=== PATIENT | male | born 1995 | race Caucasian/White ===

== ENCOUNTER 2023-11-19 16:45 | Outpatient (RCR) | payer OTHER, SELFPAY | END 2024-01-31 14:26 | disposition home or self-care (01) | PROVIDERS: PCP Family Medicine; Visit Provider Orthopaedic Surgery | DX: M22.42 Chondromalacia patellae, left knee (principal); M25.562 Pain in left knee; Z51.89 Encounter for other specified aftercare | CPT/HCPCS: 97110; 97140; 97162 ==

== ENCOUNTER 2024-07-31 15:40 | Emergency (ER) | payer OTHER, SELFPAY ==
[2024-07-31 15:58] VITALS: BP 139/79; PULSE 68; RESP 24; TEMP 36.5; O2SAT 100; BMI 20.4
--- NOTE | 2024-07-31 16:20 | CRLHL7_ITS ---
For Patients: As a result of the Cures Act, medical imaging exams and procedure reports are released immediately into your electronic medical record. You may view this report before your referring provider. If you have questions, please contact your health care provider. Indication: Pain, surgery yesterday Technique: Left lower extremity venous ultrasound utilizing grayscale, color flow and duplex Doppler techniques Comparison: None Findings: Sonographic evaluation of the left lower extremity venous system from the common femoral, partially visualized greater saphenous, through the femoral, popliteal and calf veins demonstrates no echogenic debris, normal compressibility, normal color flow and normal augmented duplex Doppler waveforms. No popliteal cyst. Impression: Negative study. Dictated by Yaya Bowman MD @ 07/31/2024 5:57:58 PM (Electronically Signed)
[2024-07-31] MEDS: MORPHINE 4 MG/ML INJ 8 MG IM (16:29)
--- NOTE | 2024-07-31 17:20 | ED.GENADULT ---
HPI - General Adult General Date Seen: 07/31/24 Chief complaint: Extremity Pain/Injury, Lower Stated complaint: knee pain Time Seen by Provider: 07/31/24 16:13 Source: patient Mode of arrival: ambulatory Limitations: no limitations History of Present Illness HPI narrative: Patient is a 28-year-old male who had a surgery on his left knee yesterday, a FANTA procedure which was done at [facility] in [place]. He says he had a block in place which was supposed to last for 4 days but he has had significant pain today including pain in the thigh and calf. He was sent in to evaluate for possible blood clot. He does not have history of DVT or PE. He has not noted any swelling. He has been taking Tylenol and oxycodone but says that has not been controlling his pain and requests additional medication here. He does take gabapentin chronically, no other chronic pain medications. He uses marijuana regularly, drinks occasionally, denies either in the past couple of days. No fevers or systemic symptoms. Related Data Home Medications ?Medication ?Instructions ?Recorded ?Confirmed aspirin 81 mg tablet,delayed 81 mg PO BID 07/31/24 07/31/24 release buspirone 15 mg tablet 15 mg PO 3XD 07/31/24 07/31/24 docusate sodium 100 mg capsule 100 mg PO BID PRN 07/31/24 07/31/24 escitalopram oxalate 20 mg tablet 20 mg PO DAILY 07/31/24 07/31/24 gabapentin 300 mg capsule mg PO 07/31/24 methocarbamol 500 mg tablet mg PO 07/31/24 ondansetron HCl 4 mg tablet 4 mg PO Q8H PRN 07/31/24 07/31/24 oxycodone-acetaminophen 5 mg-325 tab PO 07/31/24 mg tablet Allergies Allergy/AdvReac Type Severity Reaction Status Date / Time strawberry Allergy Severe Hives Verified 07/31/24 15:54 Sulfa (Sulfonamide Allergy Severe Hives Verified 07/31/24 15:54 Antibiotics) Review of Systems Status of ROS: Reports: 6 or more systems reviewed and unremarkable except as noted in History and below PFSH PFSH Social History Smoking Status: Never smoker Do you use any of these nicotine containing products: None How often do you have a drink containing alcohol: 2-3 times a week AUDIT-C Alcohol total score: 3 Non-prescribed substance use: marijuana (any form) Exam Narrative: Exam Narrative: Vital signs reviewed In general, alert, well-appearing young man. Extremities: Examination of the left leg initially shows it to be entirely bandaged and in a hinged knee brace. Distal CMS is normal, there is no edema, no calf tenderness. No erythema or warmth. Const: Vital Signs, click to edit/add: Vital Signs - 24 hr 07/31/24 15:58 07/31/24 17:51 Temperature 97.7 F 98.7 F Pulse Rate [Pulse Oximeter] 68 60 Respiratory Rate 24 18 Blood Pressure [Ri ght Upper Arm] 139/79 141/99 H Pulse Oximetry 100 99 Oxygen Delivery Me thod Room Air Room Air Documenting provider has reviewed patient's vital signs: yes Course Course ED Course: Dressings were taken down for further evaluation. No significant erythema, edema, or other abnormalities. There is some swelling around the knee which is to be expected. Range of motion was not assessed as he is not supposed to flex or extend the knee outside of 30? for the time being. An ultrasound was done, preliminary read is negative for DVT. No evidence of infection. Add recommended this time that he continue with his regular pain medications, did have 8 mg of IM morphine here along with cyclobenzaprine. He should call his orthopedic clinic tomorrow to discuss if he continues to have significant pain. Vital Signs Vital signs: Initial Vital Signs Temperature 97.7 F 07/31/24 15:58 Temperature Source Temporal Artery Scan 07/31/24 15:58 Pulse Rate 68 07/31/24 15:58 Respiratory Rate 24 07/31/24 15:58 Blood Pressure 139/79 07/31/24 15:58 Blood Pressure Mean 99 07/31/24 15:58 Blood Pressure Position Sitting 07/31/24 15:58 Pulse Oximetry 100 07/31/24 15:58 Oxygen Delivery Method Room Air 07/31/24 15:58 Vital Signs Temperature 97.7 F 07/31/24 15:58 Pulse Rate 68 07/31/24 15:58 Respiratory Rate 24 07/31/24 15:58 Blood Pressure 139/79 07/31/24 15:58 Pulse Oximetry 100 07/31/24 15:58 Oxygen Delivery Method Room Air 07/31/24 15:58 Temperature 98.7 F 07/31/24 17:51 Pulse Rate 60 07/31/24 17:51 Respiratory Rate 18 07/31/24 17:51 Blood Pressure 141/99 H 07/31/24 17:51 Pulse Oximetry 99 07/31/24 17:51 Oxygen Delivery Method Room Air 07/31/24 17:51 Medications Administered Medications: Discontinued Medications Generic Name Dose Route Start Last Admin Trade Name Juan PRN Reason Stop Dose Admin Acetaminophen 1,000 mg 07/31/24 17:51 07/31/24 17:54 Acetaminophen 500 Mg Tablet PO 07/31/24 17:52 1,000 mg ONCE ONE Administration Cyclobenzaprine HCl 10 mg 07/31/24 17:22 07/31/24 17:32 Cyclobenzaprine Hcl 10 Mg Tablet PO 07/31/24 17:23 10 mg ONCE ONE Administration Morphine Sulfate 8 mg 07/31/24 16:19 07/31/24 16:29 Morphine 4 Mg/Ml Inj IM 07/31/24 16:20 8 mg ONCE ONE Administration Discharge Plan Discharge Clinical Impression: Acute post-operative pain Patient Disposition: Home, Self-Care Condition: Stable Instructions: Pain Management After Surgery (DC) Additional Instructions: I would recommend Tylenol 1000 mg 3 times daily as your baseline pain control. Use oxycodone as needed, 1-2 tablets. Continue your muscle relaxer. If pain is not settling down, please discuss further with orthopedic clinic tomorrow. Return any time for significant changes such as swelling, redness, fevers. Your ultrasound today was read as negative for blood clot and there was no evidence of infection on today's exam. Prescriptions: No Action aspirin 81 mg tablet,delayed release (DR/EC) 81 mg PO BID docusate sodium 100 mg capsule 100 mg PO BID PRN gabapentin 300 mg capsule PO buspirone 15 mg tablet 15 mg PO 3XD escitalopram oxalate 20 mg tablet 20 mg PO DAILY methocarbamol 500 mg tablet PO ondansetron HCl 4 mg tablet 4 mg PO Q8H PRN oxycodone-acetaminophen 5-325 mg tablet PO Follow Up/Referrals: Nuria Georges MD [Primary Care Provider] - Stand Alone Forms: [facility] Info Instructions
[2024-07-31] MEDS: CYCLOBENZAPRINE HCL 10 MG TABLET PO (17:32)
[2024-07-31 17:51] VITALS: BP 141/99; PULSE 60; RESP 18; TEMP 37.1; O2SAT 99
[2024-07-31] MEDS: ACETAMINOPHEN 500 MG TABLET 1000 MG PO (17:54)
== END 2024-07-31 18:00 | disposition home or self-care (01) ==
PROVIDERS: Emergency Provider Emergency Medicine; PCP Family Medicine
DX: M25.562 Pain in left knee (principal); G89.18 Other acute postprocedural pain
CPT/HCPCS: 93971; 96372; 99283; 99284; A9270; J2270

== ENCOUNTER 2024-09-11 09:15 | Outpatient (RCR) | payer OTHER, SELFPAY ==
--- OUTSIDE RECORDS SUMMARY | 2024-09-11 09:31 | XMS_ITS | Clinical Summary ---
Author Organization [facility] Address [place], [place] [address] Care Team Providers Care Cyanide Case Hardener Name Role Phone Nuria Georges MD Primary Care Provider [phone] Allergies Active Allergy Reactions Criticality Noted Date Comments [place] *Unknown 11/06/2016 Sulfa (Sulfonamide Antibiotics) *Unknown 10/12 Terbinafine Hives High 07/26/2017 Medications multivitamin (MVI) tablet Take 1 Tablet by mouth once daily. 0 09/14/19 22 Active cholecalciferol (Vitamin D) 1,000 unit capsule Take 1 Capsule (1,000 units) by mouth once daily. 0 09/14/19 22 Active crutchIndicatio ns:S/P left knee arthroscopy For home use. 2 Each 10/31/19 24 Active gabapentin (NEURONTIN) 300 mg capsuleIndicati ons:Chronic knee pain, unspecified laterality TAKE 2 CAPSULES(600 MG) BY MOUTH AT BEDTIME 180 Capsule 1 04/16/20 24 Active escitalopram oxalate (LEXAPRO) 20 mg tabletIndicatio ns:Anxiety and depression TAKE 1 TABLET(20 MG) BY MOUTH EVERY DAY 90 Tablet 1 04/16/20 24 Active busPIRone (BUSPAR) 15 mg tabletIndicatio ns:Anxiety and depression TAKE 1 AND 1/2 TABLETS (22.5 MG) AT BEDTIME. 07/18/20 24 Active methocarbamoL 500 mg tabletIndicatio ns:Post-operati ve state Take 1 Tablet (500 mg) by mouth every 6 hours if needed for Muscle Spasm. 30 Tablet 07/30/20 24 Active docusate (COLACE) 100 mg tabletIndicatio ns:Post-operati ve state Take 1 Tablet (100 mg) by mouth 2 times daily if needed (constipation). 30 Tablet 07/30/20 24 Active ondansetron (Zofran) 4 mg tabletIndicatio ns:Post-operati ve state Take 1 Tablet (4 mg) by mouth every 8 hours if needed for Nausea/Vomiting. 30 Tablet 07/30/20 24 Active oxyCODONE-aceta minophen (PERCOCET) 5-325 mg per tabletIndicatio ns:Post-op pain Take 1 Tablet by mouth every 4 hours if needed for Pain. Max acetaminophen dose: 4000mg in 24 hrs. 8 Tablet 08/03/20 24 Active oxyCODONE-aceta minophen (Percocet) 5-325 mg per tabletIndicatio ns:Post-operati ve state Take 1 Tablet by mouth every 6 hours if needed for Pain. Max acetaminophen dose: 4000mg in 24 hrs. 20 Tablet 08/18/20 24 Active oxyCODONE-aceta minophen (PERCOCET) 5-325 mg per tabletIndicatio ns:Post-operati ve state Take 1 Tablet by mouth every 6 hours if needed for Pain. Max acetaminophen dose: 4000mg in 24 hrs. 12 Tablet 09/09/20 24 Active aspirin (ECOTRIN) 81 mg enteric coated tabletIndicatio ns:Post-operati ve state Take 1 Tablet (81 mg) by mouth two times daily with meals for 14 days. 28 Tablet 07/30/20 24 024 oxyCODONE-aceta minophen (Percocet) 5-325 mg per tabletIndicatio ns:Post-operati ve state Take 1-2 Tablets by mouth every 6 hours if needed for Pain. Max acetaminophen dose: 4000mg in 24 hrs. 30 Tablet 08/12/20 24 024 Discontinu ed(Reorder (E-cancel not sent)) amoxicillin-cla vulanate (AUGMENTIN) 875-125 mg tabletIndicatio ns:Acute non-recurrent frontal sinusitis Take 1 Tablet by mouth every 12 hours for 5 days. 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 Chronic knee pain 07/26/2018 Restless leg syndrome 07/26/2018 Encounters Date Type Department Care Team Description 08/21/2024 10:40 AM [address] Telemedicine [facility] [address] [place] [phone] Elias Waterman NP Headache; Throat Problem 08/21/2024 Travel 08/13/2024 10:00 AM [address] Office Visit [facility] [address] [place] [phone] Leonidas Nunes PA Surgical Followup (S/P left knee scope) 08/13/2024 Travel 08/03/2024 Telephone [facility] [address] [place], [place] [id number] Gilles Alonso DO 08/03/2024 Nurse Triage [facility] [address] [place] [phone] Hilton Onofre MD Error-please disregard 08/03/2024 Nurse Triage [facility] [address] [place] [phone] Hilton Onofre MD Post-op 08/03/2024 Telephone [facility] [address] [place] [phone] Hilton Onofre MD Medication Management (oxyCODONE-acetamin ophen (Percocet) 5-325 mg per tablet) 07/31/2024 Orders Only [facility] Scanner 1 scan: (1-Ord) [facility], 07/31/2024 07/31/2024 Nurse Triage [facility] [address] [place] [phone] Hilton Onofre MD Post-op Pain/problem 07/30/2024 9:25 AM [address] - 07/30/2024 11:59 PM [address] Hospital Encounter Hilton Onofre MD 07/30/2024 Nurse Triage [facility] [address] [place] [phone] Hilton Onofre MD Ankle Pain/problem (Left toe/foot swelling) 07/30/2024 Orders Only [facility] [address] [facility] [address] [place] [address] Hilton Onofre MD <No scans attached> 07/30/2024 Orders Only [facility] [address] [facility] [address] [place] [phone] Emeli Carpenter PA <No scans attached> 07/30/2024 Surgery [facility] [place] [address] [facility] [address] [place] [address] Hilton Onofre MD CPT 54776 - TIBIAL TUBERCLE OSTEOTOMY - LT KNEE CPT 91017 - AUTOLOGOUS CHONDROCYTE IMPLANTATION - LT KNEE EMELI WILL BE THERE ANESTHESIA - GENERAL/BLOCK OR TO CONTACT PANKAJ WITH [facility] AND ARIANA WITH MASSIEL MASSIEL FORM ALSO FILLED OUT AND SENT POST OP APPTS MADE 07/30/2024 Orders Only [facility] [address] [facility] [address] [place] [address] Emeli Carpenter PA <No scans attached> 07/21/2024 Medical Messaging [facility] [address] [facility] [address] [place] [address] Hilton Onofre MD Physical therapy 07/18/2024 2:00 PM [address] Preop Visit [facility] [address] [place] [address] Vernell Knight, Pre-Op Exam (07/30/24 [facility] Left knee massiel procedure) 07/17/2024 Travel 06/30/2024 9:30 AM CDT Nurse/Clinic Staff Only [facility] [address] [place] [address] Flu Shot; Immunization/Inject ion 06/23/2024 Transcribe Orders [facility] [address] [place] [phone] Hilton Onofre MD from Last 3 Months Immunizations Name Administration Dates Next Due COVID-19 vaccine ([employer] NTech 30mcg/0.3mL) PF, MDV 09/14/2021 DTP 02/22/1995,1994 DTaP 11/16/1995,1994 HIB PRP-T (ActHIB,Hiberix) 11/16/1995,02/22/1995 ,1994 HPV 9 (Gardasil 9) 07/25/2016,04/19/2015 Hepatitis B (Peds) 05/07/1995,1994, 995 Hepatitis B, Unspecified 05/07/1995,1994,0 1994 Hib Conjugate, Unspecified 11/16/1995,02/22/1995 ,1994 INFLUENZA, IIV3 PF (AGE >= 6 MO) 06/30/2024 Inactivated Polio Vaccine 03/30/2000 Influenza A (H1N1), Inactivated 07/17/2009 Influenza Virus, Unspecified 06/04/2009, 06/04/2009,06/28/2007,06/28,06/29/2006,06/29/2006,07/24/2005 ,07/24/2005,06/30/2004,06/30/2004,12/11/2002 Influenza, IIV3 (Age 6-35 mos) 07/26/2012,2010 Influenza, IIV3 (Age >=3 years) 08/14/2019 Influenza, IIV4 06/08/2023,,09/14/2021,06/28,07/26/2017,07/25/2016,08/06/2015 ,05/10/2014 Influenza, IIV4 (Age 6-35 Mos) 01/08/2014 MENINGOCOCCAL VACCINE 2 VIAL 2MO-55YO (MENVEO) 07/25/2016 MMR 03/30/2000,11/16/1995 Meningococcal Vaccine (Menactra) 07/25/2016,06/10 Meningococcal Vaccine (Menomune) 06/28/2007 Oral Polio Vaccine 02/22/1995,1994, 995 Pneumococcal Conj 20-valent (Prevnar 20) 06/08/2023 Pneumococcal Poly,23-Valent (Pneumovax) 01/25/2019 Pneumococcal conj 7-Valent (Prevnar 7) 1,07/20/2000 Td (Age >=7 Years) 07/26/2017 Td, Preservative Free (age >= 7 Years) 7 Tdap 06/28/2007 Varicella Vaccine 06/28/2007,11/16/1995 Zoster (Shingrix-RZV, recombinant) 01/25/2019 Family History Medical History Relation Name Comments Other Brother IGG def Thyroid Disease Father Brain Aneurysm Maternal Aunt Other Maternal Grandfather AAA Brain Aneurysm Mother Colon polyps Mother has had cancero us polyps removed Other Sister IGA, IGG def Von Willebrand disease Sister Relation Name Status Comments Brother Alive Father Alive Maternal Aunt Maternal Grandfather Mother Alive Sister Alive Social History Tobacco Use Types Packs/Day Years Used Date Smoking Tobacco: Never Smokeless Tobacco: Never Tobacco Cessation:Counseling Given: Yes Alcohol Use Standard Drinks/Week Comments Yes 8 (1 standard drink = 0.6 oz pur e alcohol) [facility] Utilities Answer Date Recorded Do you have trouble paying f or utilities (for example, heat, electricity, water, phone)? Yes 03/25/2024 PHQ-2 Answer Date Recorded PHQ-2 TOTAL SCORE 0 04/13/2023 Social Connections Answer Date Recorded Do you often feel lonely or isolated from those around you? 0 03/25/2024 Financial Resource Strain Answer Date R ecorded Difficulty of Paying Living Expenses 3 03/25/2024 Difficulty of Paying Living Expenses Not on file 03/25/2024 Food Insecurity Answer Date Recorded Do you worry your food will run out before you are able to buy more? 1 03/25/2024 Transportation Needs Answer Date Record ed Does lack of transportation keep you from medica l appointments? 1 03/25/2024 Does lack of transportation keep you from work, meetings or getting things that you need? 1 03/25/2024 Housing Stability Answer Date Recorded What is your housing situation today? 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 [address] Gender Identity Not on file Sexual Orientation Not on file Occupation Industry Job Start Date Job End Date Not on file Not on file Not on file Not on file Obstetrics History Last Filed Vital Signs Vital Sign Reading Time Taken Comments Blood Pressure 121/78 07/18/2024 2:03 PM [address] Pulse 78 07/18/2024 2:03 PM [address] Temperature 36.7 C (98 F) 10/31/2023 8:55 AM [address]MP TRUCK DRIVER [address] Respiratory Rate 16 10/31/2023 10:28 AM [address]MP TRUCK DRIVER [address] Oxygen Saturation 99% 03/25/2024 10:54 AM CDT Inhaled Oxygen Concentration - - Weight 71.7 kg (158 lb) 07/18/2024 2:03 PM [address] Height 185 cm (6' 0.84) 07/18/2024 2:03 PM [address] Body Mass Index 20.94 07/18/2024 2:03 PM [address] Plan of Treatment Upcoming Encounters Date Type Department Care Team (Late st Contact Info) Description 09/26/2024 9:30 AM [address] TR[address] DRIVER [address] Office Visit [facility] [address] [place] [address] Hilton Onofre MD [address] [facility] [address] [place] [address] 11/14/2024 9:30 AM [address] DRIVER [address] Office Visit [facility] [address] [place] [address] Hilton Onofre MD [address] [place] [address] Health Maintenance Due Date Last Done Comments HIV for age 15-65 2009 Hepatitis C screening for ag e 18-79 2012 COVID-19 vaccine series ( season) 2024 09/14/2021, 01/20/2021 Depression screening for age 12+ 10/04/2024 10/04/2023, 04/13/2023, 02/19/2022, Additional history exists BMI (ht and wt on same day) for age 18+ 07/18/2025 07/18/2024, 10/24/2023, 09/14/2021 Tetanus booster 07/26/2027 07/26/2017, 07/11, 06/28/2007 Tdap Completed 06/28/2007 Pneumococcal series for age 6-49 Completed 06/08/2023, 01/25/2019, 01/03/2001, Additional history exists Influenza for age 9-49 Completed , 06/08/2023, 09/01/2022, Additional history exists Procedures Procedure Name Priority Date/Time Associated Diagnosis Comments SCAN-ULTRASOUND REPORT 07/31/2024 12:00 AM [address] TR[address] DRIVER [address] SURGICAL PROCEDURE (TYPE PROCEDURE DESCRIPTION BELOW) Elective Patella, chondromalacia, left Chronic pain of left knee History of repair of ACL S/P arthroscopy of knee from Last 3 Months Results * SCAN-ULTRASOUND REPORT (07/31/2024 12:00 AM [address]MP TRUCK DRIVER [address]) Anatomical Region Laterality Modality Other us Scanner OTHER Final Result from Last 3 Months Insurance [facility] [employer] Advance Directives * Full Code (Latest Code Status on File) Date Activated Date Inactivated Comments 10/31/2023 6:19 AM 10/31/2023 2:06 PM Question Answer Comments Code Status Discussion: Unable to Assess Preferences, Provider to review later Care Teams Cyanide Case Hardener Relationship Specialty Start Date End Date Nuria Georges MD [address] [place] [address] PCP - General Family Practice 09/14/21
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
--- OUTSIDE RECORDS SUMMARY | 2024-09-11 09:32 | XMS_ITS | Encounter Summary ---
Author Organization [facility] Address [address] [place] [address] Care Team Providers Care Lab Instructor Name Role Phone Shamika Harris MD Primary Care Provider [phone] Encounter Details Date Type Department Care Team (Late st Contact Info) Description 02/16/2012 Outside Hospital External to Binta Smith - ED VISIT Social History Tobacco Use Types Packs/Day Years Used Date Smoking Tobacco: Never Assessed Sex and Gender Information Value Date Recorded Sex Assigned at Not on file Gender Identity Not on file Sexual Orientation Not on file documented as of this encounter Progress Notes * Sarah Beth Beach Provider - 02/16/2012 12:00 AM CDT documented in this encounter Plan of Treatment Not on file documented as of this encounter Visit Diagnoses Not on filedocumented in this encounter Care Teams Lab Instructor Relationship Specialty Start Date End Date Shamika Harris MD [address] [facility] [place] [id number] PCP - General 12/11/10 documented as of this encounter
--- OUTSIDE RECORDS SUMMARY | 2024-09-11 09:32 | XMS_ITS | Encounter Summary ---
Author Organization [facility] Address [address] [place] [address] Care Team Providers Care Radiology Orderly Name Role Phone Shamika Harris MD Primary Care Provider [phone] Encounter Details Date Type Department Care Team (Late st Contact Info) Description 04/16/2012 [facility] [address] [place] [id number] Vipul Jaquez MD HEALTH CARE PROVIDER REPORT Social History Tobacco Use Types Packs/Day Years Used Date Smoking Tobacco: Never Assessed Sex and Gender Information Value Date Recorded Sex Assigned at Not on file Gender Identity Not on file Sexual Orientation Not on file documented as of this encounter Progress Notes * Vipul Jaqeuz MD - 04/16/2012 12:00 AM CDT documented in this encounter Plan of Treatment Not on file documented as of this encounter Visit Diagnoses Not on filedocumented in this encounter Care Teams Radiology Orderly Relationship Specialty Start Date End Date Shamika Harris MD [address] [facility] [place] [id number] PCP - General 12/11/10 documented as of this encounter
== END 2024-11-13 09:37 | disposition home or self-care (01) ==
PROVIDERS: PCP Family Medicine; Visit Provider Orthopaedic Surgery
DX: Z98.890 Other specified postprocedural states (principal); M25.562 Pain in left knee; M25.662 Stiffness of left knee, not elsewhere classified; M62.551 Muscle wasting and atrophy, not elsewhere classified, right thigh; Z51.89 Encounter for other specified aftercare
CPT/HCPCS: 97110; 97112; 97116; 97161